=== PATIENT | female | born 1975 | race Caucasian/White ===

== ENCOUNTER 2021-09-18 15:24 | Emergency (ER) | payer MEDICAID ==
[~2021-09-18 15:24] MED LIST: KLONOPIN0.5 MG PO; LARIN 21 1-201 EACH PO; LEVAQUIN750 MG PO; MOTRIN600 MG PO; NORCO 5-325 TA1 EACH PO; PROTONIX 40MG T40 MG PO; SYNTHROID50 MCG PO
[2021-09-18 20:23] LABS: BASOPHIL 0.2 % (0-2); EOSINOPHIL 0 % (0-5); HCT 47.3 % (37.0-47.0); HGB 14.7 g/dl (12.5-16.0); LYMPHOCYTE 20.2 % (15-48); MCH 27.9 pg (25.0-31.0); MCHC 31.1 g/dL (32.0-36.0); MCV 89.9 fL (78.0-100.0); MONOCYTE 6.4 % (0-12); MPV 11.4 fL (6.0-9.5); NRBC 0; PLT 184 K/uL (150-400); RBC 5.26 M/uL (4.20-5.40); RDW 13.8 % (11.5-14.0); WBC 4.9 K/uL (4.0-10.5)
[2021-09-18 20:37] LABS: ALBUMIN 3.8 g/dL (3.4-5.0); BILIRUBIN - TOTAL 0.3 mg/dL (0.2-1.0); BUN/CREAT RATIO (CALC) 7.5 RATIO; CREATININE 0.67 mg/dL (0.51-0.95); GLOBULIN (CALCULATION) 3.8 g/dL; POTASSIUM 4.1 mmol/L (3.5-5.1); TOTAL PROTEIN 7.6 g/dL (6.4-8.2)
[2021-09-18 21:48] LABS: BILIRUBIN NEGATIVE (NEGATIVE); BLOOD NEGATIVE Ery/uL (NEGATIVE); CLARITY CLEAR (CLEAR); COLOR YELLOW (YELLOW); GLUCOSE (U) NORMAL (NORMAL); LEUKOCYTES TRACE Leu/uL (NEGATIVE); NITRITE NEGATIVE (NEGATIVE); PROTEIN NEGATIVE (NEGATIVE); SPECIFIC GRAVITY 1.015 (1.001-1.030); UROBILINOGEN 0.2 mg/dL (0.2-1.0); pH 8.5 (5.0-9.0)
[2021-09-18 21:56] LABS: BACTERIA TRACE; URINARY WBC RARE
[2021-09-18] MEDS ORDERED: VENTOLIN HFA18 GM INH (22:27)
[2021-09-18] MEDS ORDERED: PREDNISONE 20MG20 MG PO (22:27)
[2021-09-18] MEDS ORDERED: TESSALON PERLE100 MG PO (22:27)
[2021-09-18] MEDS ORDERED: ZOFRAN4 M1 PO (22:27)
[2021-09-18] MEDS ORDERED: AUGMENTIN 875-1 EACH PO (22:27)
== END 2021-09-18 23:00 | disposition home or self-care (01) ==
LOC: FER 15:24
PROVIDERS: Physician Assistant
DX: U07.1 COVID-19 (principal); J45.901 Unspecified asthma with (acute) exacerbation; K04.7 Periapical abscess without sinus; Z88.2 Allergy status to sulfonamides; Z91.041 Radiographic dye allergy status
CPT/HCPCS: 36415; 71045; 80053; 81001; 84484; 85025; 85379; 87088; 93005; J1100; J2405; J7030